=== PATIENT | female | born 1995 | race African-American/Black ===

== ENCOUNTER 2018-04-11 10:27 | Inpatient (IN) | payer SELFPAY ==
[~2018-04-11] VITALS: Ht 165.1 cm; Wt 62.6 kg
[2018-04-11] MEDS ORDERED: PREDNISONE 20MG TABLET PO STA (10:47)
[2018-04-11] MEDS ORDERED: IPRATROPIUM BROMIDE (0.02%) 0.5MG/2.5ML NEB HHN STA (10:47)
[2018-04-11] MEDS ORDERED: ALBUTEROL (0.083%) 2.5MG/3ML NEB HHN STA (10:47)
[2018-04-11] MEDS ORDERED: SODIUM CHLORIDE 0.9% 1,000 ML IV ONE (12:04)
[2018-04-11] MEDS ORDERED: METHYLPREDNISOLONE SOD SUCC 125 MG/2 ML VIAL IV STA (12:04)
[2018-04-11] MEDS ORDERED: MAGNESIUM 2 G PREMIX 50 ML IV STA (12:04)
[2018-04-11 12:41] LABS: BASOPHILS % 0.2 % (0.0-2.0); EOSINOPHILS % 1.3 % (0.0-5.0); HEMATOCRIT. 40.5 % (36.0-48.0); HEMOGLOBIN. 13.4 g/dL (12.0-16.0); LYMPHOCYTES % 9.3 % (20.0-50.0); MEAN CORPUSCULAR HEMOGLOBIN 27.6 pg (28.0-32.0); MEAN CORPUSCULAR VOLUME 83.2 fL (81.0-99.0); MEAN PLATELET VOLUME 9.1 fl (7.4-10.4); MONOCYTES % 7.3 % (2.0-8.0); NEUTROPHILS % 81.9 % (40.0-76.0); PLATELET 142 x1000/uL (130-400); RED BLOOD CELL COUNT 4.87 mill/uL (4.2-5.4); RED CELL DISTRIBUTION WIDTH 14.6 % (11.6-14.6)
[2018-04-11 12:46] LABS: CHLORIDE 108 mEq/L (98-107)
[2018-04-11 12:55] LABS: D-DIMER 0.44 mg/L FEU (<0.50); INR 1.2; PARTIAL THROMBOPLASTIN TIME 27.3 sec (23.4-31.0); PROTHROMBIN TIME 12.5 sec (9.4-11.6)
[2018-04-11 13:01] LABS: HCG SCREEN NEGATIVE
[2018-04-11] MEDS ORDERED: IPRATROPIUM/ALBUTEROL 0.5-3(2.5)MG/3ML NEB INH PRN (13:15)
[2018-04-11] MEDS ORDERED: GUAIFENESIN 200MG/10ML SUGAR FREE UDC PO PRN (13:15)
[2018-04-11] MEDS ORDERED: CLONIDINE 0.1MG TABLET PO PRN (13:15)
[2018-04-11] MEDS ORDERED: KETOROLAC 15MG/ML VIAL IV PRN (13:15)
[2018-04-11] MEDS ORDERED: MAGNESIUM/ALUMINUM HYDROXIDE/SIMETHICONE 30ML UDC PO PRN (13:15)
[2018-04-11] MEDS ORDERED: ACETAMINOPHEN 325MG TABLET PO PRN (13:15)
[2018-04-11] MEDS ORDERED: POTASSIUM CHLORIDE 20MEQ TABLET SR PO NR (13:15)
[2018-04-11] MEDS ORDERED: DOCUSATE SODIUM 100MG CAPSULE PO PRN (13:15)
[2018-04-11] MEDS ORDERED: LORAZEPAM 0.5MG TABLET PO PRN (13:15)
[2018-04-11] MEDS ORDERED: NA PHOS,M-B/NA PHOS,DI-BA ENEMA 118ML PR PRN (13:15)
[2018-04-11] MEDS ORDERED: ONDANSETRON HCL 4MG/2ML VIAL IV PRN (13:15)
[2018-04-11] MEDS ORDERED: NITROGLYCERIN 0.4MG TABLET SL SL PRN (13:15)
[2018-04-11] MEDS ORDERED: DIPHENHYDRAMINE 50MG/ML VIAL IV PRN (13:15)
[2018-04-11 13:27] LABS: BG BASE EXCESS -3.9 mmol/L (-2.0-2.0); BG BILEVEL POS AIRWAY PRESSURE ST=15/5; BG CARBOXYHEMOGLOBIN 0.5 % (0.5-1.5); BG DEOXYHEMOGLOBIN 3.1 % (0.0-5.0); BG FRACTION INSPIRED OXYGEN 40; BG HCO3 ACT 19.5 mmol/L (22.0-26.0); BG OXYGEN SATURATION 96.9 % (92.0-98.5); BG OXYHEMOGLOBIN 96.4 % (94.0-97.0); BG PCO2 31.1 mmHg (35.0-45.0); BG PH 7.416 (7.350-7.450); BG PO2 91.3 mmHg (75.0-100.0); BG PRESSURE SUPPORT 10; BG SAMPLE SITE LEFT BRACHIAL; BG TOTAL HEMOGLOBIN 13.7 g/dL (12.0-18.0); BG VENT MODE MASK - BIPAP; BG VENT RATE 14 set
[2018-04-11] MEDS ORDERED: IPRATROPIUM/ALBUTEROL 0.5-3(2.5)MG/3ML NEB HHN PRN (15:30)
[2018-04-11 16:00] VITALS: BP_SYST 125; BP_SYST 138; BP_DIAS 70; BP_DIAS 80
[2018-04-11] MEDS: IPRATROPIUM/ALBUTEROL 0.5-3(2.5)MG/3ML NEB HHN SCH ×2 (16:49→21:07)
[2018-04-11] MEDS ORDERED: MONTELUKAST SODIUM 10MG TABLET PO SCH (17:00)
[2018-04-11] MEDS: METHYLPREDNISOLONE SOD SUCC 125 MG/2 ML VIAL IV SCH (17:11)
[2018-04-11 18:00] VITALS: BP 123/79
[2018-04-11] MEDS ORDERED: KCL 20MEQ/100ML PREMIX 100 ML IV NR (18:30)
[2018-04-11 20:00] VITALS: BP 136/82
[2018-04-11] MEDS ORDERED: ZOLPIDEM TARTRATE 5MG TABLET PO PRN (21:00)
[2018-04-11] MEDS ORDERED: FAMOTIDINE 20MG TABLET PO SCH (21:00)
[2018-04-11] MEDS: FAMOTIDINE 20MG/2ML VIAL IV SCH (21:24)
[2018-04-11 22:00] VITALS: BP 135/73
[2018-04-12] VITALS (12 sets, daily range): BP systolic 97–126; BP diastolic 54–91
[2018-04-12] MEDS: METHYLPREDNISOLONE SOD SUCC 125 MG/2 ML VIAL IV SCH ×2 (00:05→09:18)
[2018-04-12] MEDS: IPRATROPIUM/ALBUTEROL 0.5-3(2.5)MG/3ML NEB HHN SCH ×4 (00:30→12:31)
[2018-04-12 03:05] LABS: *AMPHETAMINES SCREEN URINE NEGATIVE (NEGATIVE); *BARBITURATES SCREEN URINE NEGATIVE (NEGATIVE); *BENZODIAZEPINES SCREEN URINE NEGATIVE (NEGATIVE); *COCAINE SCREEN URINE NEGATIVE (NEGATIVE)
[2018-04-12 03:06] LABS: METHADONE URINE SCREEN NEGATIVE (NEGATIVE); OPIATES URINE SCREEN NEGATIVE (NEGATIVE); PHENCYCLIDINE URINE SCREEN NEGATIVE (NEGATIVE)
[2018-04-12 03:11] LABS: CANNABINOID URINE SCREEN PRESUMTIVE POSITIVE (NEGATIVE)
[2018-04-12] MEDS ORDERED: FLUT1DIS2 INH (06:45)
[2018-04-12] MEDS ORDERED: LEVA0.6320 NEB (06:45)
[2018-04-12] MEDS ORDERED: MONT4GRA MT (06:45)
[2018-04-12] MEDS ORDERED: PRED2.5T4 MT (06:45)
[2018-04-12] MEDS ORDERED: LORATADINE 10MG TABLET PO SCH (09:00)
[2018-04-12] MEDS: FAMOTIDINE 20MG/2ML VIAL IV SCH (09:18)
[2018-04-12] MEDS ORDERED: LEVA15HF4 IH (11:21)
[2018-04-12] MEDS ORDERED: FLUT1DIS6 INH (11:21)
== END 2018-04-12 14:30 | disposition home or self-care (01) | DRG 133 ==
LOC: ER 10:27 → 5EST 12:27 → EDBEDREQ 12:31 → ENRESERV 13:35 → 5EST 16:56
PROVIDERS: ADMIT Internal Medicine; ATTEND Internal Medicine
DX: J96.00 Acute respiratory failure, unspecified whether with hypoxia or hypercapnia (principal); J45.31 Mild persistent asthma with (acute) exacerbation; E87.6 Hypokalemia; F12.10 Cannabis abuse, uncomplicated
CPT/HCPCS: 36415; 36600; 71045; 80048; 80305; 82375; 82805; 83036; 83880; 84439; 84443; 84484; 84703; 85025; 85379; 85610; 85730; 93005; 93970; 96365; 96375; 99291; J2930; J3475; J3480; J3490; J7030; J7040; J7512; J7611; J7620

== ENCOUNTER 2018-08-05 07:39 | Inpatient (IN) | payer BC ==
[~2018-08-05] VITALS: Ht 162.6 cm; Wt 63.5 kg
[~2018-08-05 07:39] MED LIST: FLUT1DIS6 INH; LEVA15HF4 IH
[2018-08-05] MEDS ORDERED: MAGNESIUM 2 G PREMIX 50 ML IV STA (07:48)
[2018-08-05] MEDS ORDERED: ALBUTEROL (0.083%) 2.5MG/3ML NEB HHN STA ×2 (07:48→08:51)
[2018-08-05] MEDS ORDERED: IPRATROPIUM BROMIDE (0.02%) 0.5MG/2.5ML NEB HHN STA ×2 (07:48→08:51)
[2018-08-05] MEDS ORDERED: METHYLPREDNISOLONE SOD SUCC 125 MG/2 ML VIAL IV STA (07:48)
[2018-08-05] MEDS ORDERED: SODIUM CHLORIDE 0.9% 1,000 ML IV ONE (07:48)
[2018-08-05] MEDS ORDERED: METHYLPREDNISOLONE SOD SUCC 125 MG/2 ML VIAL ONE (08:12)
[2018-08-05] MEDS ORDERED: PREDNISONE 20MG TABLET PO ONE (09:00)
[2018-08-05] MEDS ORDERED: DIPHENHYDRAMINE 50MG/ML VIAL IV PRN (09:30)
[2018-08-05] MEDS ORDERED: GUAIFENESIN 200MG/10ML SUGAR FREE UDC PO PRN (09:30)
[2018-08-05] MEDS ORDERED: DOCUSATE SODIUM 100MG CAPSULE PO PRN (09:30)
[2018-08-05] MEDS ORDERED: MAGNESIUM/ALUMINUM HYDROXIDE/SIMETHICONE 30ML UDC PO PRN (09:30)
[2018-08-05] MEDS ORDERED: CLONIDINE 0.1MG TABLET PO PRN (09:30)
[2018-08-05] MEDS ORDERED: IPRATROPIUM/ALBUTEROL 0.5-3(2.5)MG/3ML NEB INH PRN (09:30)
[2018-08-05] MEDS ORDERED: NA PHOS,M-B/NA PHOS,DI-BA ENEMA 118ML PR PRN (09:30)
[2018-08-05] MEDS ORDERED: HYDROCODONE/ACETAMINOPHEN 5/325MG TABLET PO PRN (09:30)
[2018-08-05] MEDS ORDERED: HYDROMORPHONE HCL/PF 2MG/ML CPJ IV PRN (09:30)
[2018-08-05] MEDS ORDERED: LEVOFLOXACIN 500MG PREMIX 100 ML IV SCH ×2 (09:30→12:00)
[2018-08-05] MEDS ORDERED: ONDANSETRON HCL 4MG/2ML INJ IV PRN (09:30)
[2018-08-05] MEDS ORDERED: LORAZEPAM 2MG/ML CPJ IV PRN (09:30)
[2018-08-05] MEDS ORDERED: ACETAMINOPHEN 325MG TABLET PO PRN (09:30)
[2018-08-05 09:47] LABS: BASOPHILS % 0.2 % (0.0-2.0); EOSINOPHILS % 2.2 % (0.0-5.0); HEMATOCRIT. 38.7 % (36.0-48.0); HEMOGLOBIN. 12.9 g/dL (12.0-16.0); LYMPHOCYTES % 9.5 % (20.0-50.0); MEAN CORPUSCULAR HEMOGLOBIN 27.9 pg (28.0-32.0); MEAN CORPUSCULAR VOLUME 83.4 fL (81.0-99.0); MEAN PLATELET VOLUME 8.8 fl (7.4-10.4); MONOCYTES % 4.9 % (2.0-8.0); NEUTROPHILS % 83.2 % (40.0-76.0); PLATELET 189 x1000/uL (130-400); RED BLOOD CELL COUNT 4.64 mill/uL (4.2-5.4); RED CELL DISTRIBUTION WIDTH 14.5 % (11.6-14.6)
[2018-08-05 09:56] LABS: CHLORIDE 110 mEq/L (98-107)
[2018-08-05 10:01] LABS: INR 1.1; PARTIAL THROMBOPLASTIN TIME 26.1 sec (23.4-31.0); PROTHROMBIN TIME 10.8 sec (9.1-11.1)
[2018-08-05] MEDS ORDERED: POTASSIUM CHLORIDE 20MEQ TABLET SR PO ONE (10:30)
[2018-08-05 11:00] VITALS: BP 130/72
[2018-08-05] MEDS: ENOXAPARIN 40MG/0.4ML SYR SUBCUT SCH (11:00)
[2018-08-05 12:30] VITALS: BP 130/72
[2018-08-05] MEDS: METHYLPREDNISOLONE SOD SUCC 125 MG/2 ML VIAL IV SCH ×2 (12:49→17:39)
[2018-08-05 16:15] VITALS: BP 136/78
[2018-08-05] MEDS: LORATADINE 10MG TABLET PO SCH (16:28)
[2018-08-05] MEDS ORDERED: MONTELUKAST SODIUM 10MG TABLET PO SCH (17:00)
[2018-08-05] MEDS: IPRATROPIUM/ALBUTEROL 0.5-3(2.5)MG/3ML NEB HHN SCH ×3 (17:09→21:32)
[2018-08-05 20:00] VITALS: BP 131/52
[2018-08-05] MEDS: FAMOTIDINE 20MG/2ML VIAL IV SCH (21:26)
[2018-08-06] VITALS: BP 114/56
[2018-08-06] MEDS: IPRATROPIUM/ALBUTEROL 0.5-3(2.5)MG/3ML NEB HHN SCH ×2 (01:04→08:49)
[2018-08-06] MEDS: METHYLPREDNISOLONE SOD SUCC 125 MG/2 ML VIAL IV SCH ×2 (01:41→05:52)
[2018-08-06 04:00] VITALS: BP 120/66
[2018-08-06 06:41] LABS: HEMOGLOBIN. 12.7 g/dL (12.0-16.0); MEAN CORPUSCULAR HEMOGLOBIN 27.8 pg (28.0-32.0); MEAN CORPUSCULAR VOLUME 83.1 fL (81.0-99.0); MEAN PLATELET VOLUME 8.8 fl (7.4-10.4); PLATELET 207 x1000/uL (130-400); RED BLOOD CELL COUNT 4.58 mill/uL (4.2-5.4); RED CELL DISTRIBUTION WIDTH 14.7 % (11.6-14.6)
[2018-08-06 06:56] LABS: CHLORIDE 107 mEq/L (98-107)
[2018-08-06 07:05] LABS: HDL CHOLESTEROL 69 mg/dL (40-59); LDL CHOLESTEROL 61 mg/dL (5-100)
[2018-08-06 07:55] VITALS: BP 117/72
[2018-08-06] MEDS: FAMOTIDINE 20MG/2ML VIAL IV SCH (08:43)
[2018-08-06] MEDS: LORATADINE 10MG TABLET PO SCH (08:43)
[2018-08-06] MEDS: ENOXAPARIN 40MG/0.4ML SYR SUBCUT SCH (08:47)
[2018-08-06 09:24] VITALS: BP 117/72
[2018-08-06 11:51] LABS: NUCLEATED RED BLOOD CELLS 1 /100 WBC; PLATELET ESTIMATE NORMAL
== END 2018-08-06 11:55 | disposition home or self-care (01) | DRG 189 ==
LOC: ER 07:39 → 6WST 09:06 → ENRESERV 09:48 → 6WST 11:12
PROVIDERS: ADMIT Internal Medicine; ATTEND Internal Medicine
DX: J96.01 Acute respiratory failure with hypoxia (principal); J45.902 Unspecified asthma with status asthmaticus; R65.10 Systemic inflammatory response syndrome (SIRS) of non-infectious origin without acute organ dysfunction; E87.6 Hypokalemia; Z79.51 Long term (current) use of inhaled steroids; Z79.899 Other long term (current) drug therapy; Z88.8 Allergy status to other drugs, medicaments and biological substances; Z82.5 Family history of asthma and other chronic lower respiratory diseases
CPT/HCPCS: 36415; 71045; 80048; 80061; 81025; 83880; 84484; 93005; 94640; 96365; 96375; 99291; J1956; J2930; J3475; J3490; J7030; J7040; J7512; J7611; J7620

== ENCOUNTER 2019-03-15 16:40 | Emergency (ER) | payer BC ==
[~2019-03-15] VITALS: Ht 160 cm; Wt 70.0 kg
[2019-03-15] MEDS ORDERED: IPRATROPIUM BROMIDE (0.02%) 0.5MG/2.5ML NEB HHN STA (20:03)
[2019-03-15] MEDS ORDERED: PREDNISONE 20MG TABLET PO STA (20:03)
[2019-03-15] MEDS ORDERED: ALBUTEROL (0.083%) 2.5MG/3ML NEB HHN STA (20:03)
[2019-03-15 22:45] VITALS: BP 119/65
== END 2019-03-15 22:45 | disposition home or self-care (01) ==
LOC: ER 16:40
DX: J45.901 Unspecified asthma with (acute) exacerbation (principal); F12.90 Cannabis use, unspecified, uncomplicated
CPT/HCPCS: 93005; 94644; 99285; J7512; J7611

== ENCOUNTER 2019-08-31 21:52 | Emergency (ER) | payer SELFPAY ==
[~2019-08-31] VITALS: Ht 160 cm; Wt 62.6 kg
[2019-08-31] MEDS ORDERED: IPRATROPIUM BROMIDE (0.02%) 0.5MG/2.5ML NEB HHN STA (23:06)
[2019-08-31] MEDS ORDERED: ALBUTEROL (0.083%) 2.5MG/3ML NEB HHN STA (23:06)
[2019-08-31] MEDS ORDERED: PREDNISONE 20MG TABLET PO STA (23:06)
[2019-09-01 01:15] VITALS: BP 121/61
== END 2019-09-01 01:16 | disposition home or self-care (01) ==
LOC: ER 21:52
DX: J45.909 Unspecified asthma, uncomplicated (principal); F12.10 Cannabis abuse, uncomplicated; Z88.9 Allergy status to unspecified drugs, medicaments and biological substances
CPT/HCPCS: 81025; 94644; 99285; J7512; J7611; Z7610